=== PATIENT | female | born 1965 | race Caucasian/White ===

== ENCOUNTER → 2017-01-16 | Outpatient (CLI) | payer OTHER ==
[~2017-01-16] MED LIST: AMBI10TA PO; TYLE3 PO; VIVE0.1D TD
[2017-01-16 07:00] LABS: AUTOMATED NEUTROPHIL # 3.5 TH/MM3 (1.8-7.7); BASOPHIL % 0.5 % (0.0-2.0); EOSINOPHIL # 0.1 TH/MM3 (0-0.4); EOSINOPHIL % 2.1 % (0.0-4.0); HEMATOCRIT 40.7 % (35.0-46.0); HEMO FLAGS DIFF FINAL; LYMPH % 33.6 % (9.0-44.0); MEAN CELL VOLUME 84.7 FL (80.0-100.0); MEAN CORPUSCULAR HEMOGLOBIN 28.7 PG (27.0-34.0); MEAN CORPUSCULAR HGB CONC 33.9 % (32.0-36.0); MONO % 5.1 % (0.0-8.0); NEUT % 58.7 % (16.0-70.0); PLATELET COUNT 281 TH/MM3 (150-450); RED BLOOD COUNT 4.81 MIL/MM3 (4.00-5.30); RED CELL DISTRIBUTION WIDTH 13.4 % (11.6-17.2)
[2017-01-16 08:01] LABS: ALKALINE PHOSPHATASE 84 U/L (45-117); TOTAL BILIRUBIN ADULT 0.1 MG/DL (0.2-1.0)
[2017-01-16 08:43] LABS: ALT (GPT) 23 U/L (10-53); ANION GAP 8 MEQ/L (5-15); AST (GOT) 23 U/L (15-37); BICARBONATE 29.5 MEQ/L (21.0-32.0); BLOOD UREA NITROGEN 16 MG/DL (7-18); CHLORIDE 104 MEQ/L (98-107); GLOMERULAR FILTRATION RATE 85 ML/MIN (>89); GLUCOSE,FASTING 76 MG/DL (74-99); POTASSIUM 3.9 MEQ/L (3.5-5.1); SODIUM (NA) 141 MEQ/L (136-145)
== END ==
LOC: CLAB 06:33
PROVIDERS: ATTEND Nurse Practitioner
DX: R94.4 Abnormal results of kidney function studies (principal)
CPT/HCPCS: 36415; 80053; 85025

== ENCOUNTER → 2017-02-05 | Day surgery (SDC) | payer OTHER ==
[~2017-02-05] MED LIST changes: +LACTATED RINGER'S 1,000 ML BAG IV ONE; +PROPOFOL 500 MG/50 ML BTL IV ONE
--- NOTE | 2017-02-05 15:00 | GIPROC ---
[facility] [address] [facility] [place], [address] COLONOSCOPY PROCEDURE REPORT EXAM DATE: 02/05/2017 PATIENT NAME: Stevie Perry MR #: [id number] BIRTHDATE: 1965 ENDOSCOPIST: Padma Hammond MD ORDER #: [id number] MANAGER FIELD SERVICES: Kesha Yeager RN STATUS: outpatient INDICATIONS: The patient is a 51 yr old female here for a colonoscopy due to high risk patient with previously diagnosed UC proctitis PROCEDURE PERFORMED: Colonoscopy with biopsy MEDICATIONS: None and Per Anesthesia. PREP QUALITY: The [place] Bowel Prep Score was Right colon 2, Mid colon 3, and Left colon 3. Total = 8. PREP TYPE:SuPrep ESTIMATED BLOOD LOSS: None CONSENT: The patient understands the risks and benefits of the procedure and understands that these risks include, but are not limited to: sedation, allergic reaction, infection, perforation and/or bleeding. Alternative means of evaluation and treatment include, among others: physical exam, x-rays, and/or surgical intervention. The patient elects to proceed with this endoscopic procedure. medical equipment was checked for proper function. Hand hygiene and appropriate measures for infection prevention was taken. After the risks, benefits and alternatives of the procedure were thoroughly explained, Informed consent was verified, confirmed and timeout was successfully executed by the treatment team. A digital exam revealed external hemorrhoids The EC-3890Li ([id number]) and EC-[id number] ([id number]) endoscope was introduced through the anus and advanced to the cecum, which was identified by both the appendix and ileocecal valve. The instrument was then slowly withdrawn as the colon was fully examined. COLON FINDINGS: A circumferential diffuse patch of colitis was found in the rectum. The mucosa was erythematous and had granularity. This is consistent with ulcerative colitis disease. Multiple biopsies were performed using cold forceps. Retroflexed views revealed internal hemorrhoids and Retroflexed views revealed medium internal hemorrhoids The scope was then completely withdrawn from the patient and the procedure terminated. PROCEDURE WITHDRAWAL TIME:7minutes ADVERSE EVENTS: There were no complications. IMPRESSIONS: 1. Circumferential diffuse colitis was found in the rectum; The mucosa was erythematous and had granularity; This is consistent with ulcerative colitis.; multiple biopsies were performed using cold forceps 2. Retroflexed views revealed internal hemorrhoids 3. Retroflexed views revealed medium internal hemorrhoids 4. Revealed external hemorrhoids RECOMMENDATIONS: 1. Await biopsy results. Biopsy results will not be ready for 7-10 days. If you don't hear from us in two weeks, call our office for results. 2. Yearly hemoccult 3. Avoid NSAIDS and Aspirin 4. Follow-up: GI Clinic 2 week(s) RECALL: Return 1 year Colonoscopy, pending biopsy results Padma Hammond MD eSigned: Padma Hammond MD 02/05/2017 3:00 PM cc: Mendoza Carrasquillo [facility] Harrell and Radha Man M.D.
== END | disposition home or self-care (01) ==
LOC: ESDC 11:38
PROVIDERS: ATTEND Internal Medicine Gastroenterology
DX: K51.90 Ulcerative colitis, unspecified, without complications (principal); K64.8 Other hemorrhoids; K64.4 Residual hemorrhoidal skin tags
CPT/HCPCS: 00810; 45380; 88305; J7120

== ENCOUNTER → 2017-03-01 | Outpatient (CLI) | payer OTHER ==
[~2017-03-01] MED LIST changes: -LACTATED RINGER'S 1,000 ML BAG IV ONE; -PROPOFOL 500 MG/50 ML BTL IV ONE
[2017-03-03 15:51] LABS: ALMOND LESS THAN 0.10 kU/L (()); ALMOND CLASS 0 (()); CASHEW CLASS 0 (()); CODFISH CLASS 0 (()); COWS MILK CLASS 0 (()); COWS MILK IGE LESS THAN 0.10 kU/L (()); EGG WHITE LESS THAN 0.10 kU/L (()); EGG WHITE CLASS 0 (()); HAZELNUT LESS THAN 0.10 kU/L (()); HAZELNUT CLASS 0 (()); PEANUT LESS THAN 0.10 kU/L (()); PEANUT CLASS 0 (()); SALMON LESS THAN 0.10 kU/L (()); SALMON CLASS 0 (()); SCALLOP LESS THAN 0.10 kU/L (()); SCALLOP CLASS 0 (()); SESAME SEED LESS THAN 0.10 kU/L (()); SESAME SEED CLASS 0 (()); SHRIMP LESS THAN 0.10 kU/L (()); SHRIMP CLASS 0 (()); SOYBEAN LESS THAN 0.10 kU/L (()); SOYBEAN CLASS 0 (()); TUNA LESS THAN 0.10 kU/L (()); TUNA CLASS 0 (()); WALNUT LESS THAN 0.10 kU/L (()); WALNUT CLASS 0 (()); WHEAT LESS THAN 0.10 kU/L (()); WHEAT CLASS 0 (())
== END ==
LOC: CLAB 07:16
PROVIDERS: ATTEND Internal Medicine
DX: Z91.018 Allergy to other foods (principal)
CPT/HCPCS: 36415; 86003

== ENCOUNTER → 2017-06-25 | Outpatient (CLI) | payer OTHER ==
[2017-06-25 07:40] LABS: HEMATOCRIT 41.2 % (35.0-46.0); MEAN CELL VOLUME 85.6 FL (80.0-100.0); MEAN CORPUSCULAR HEMOGLOBIN 28.4 PG (27.0-34.0); MEAN CORPUSCULAR HGB CONC 33.2 % (32.0-36.0); PLATELET COUNT 273 TH/MM3 (150-450); RED BLOOD COUNT 4.81 MIL/MM3 (4.00-5.30); RED CELL DISTRIBUTION WIDTH 13.2 % (11.6-17.2); REVIEW FLAG FINAL; WHITE BLOOD COUNT 4.3 TH/MM3 (4.0-11.0)
[2017-06-25 08:09] LABS: ANION GAP 5 MEQ/L (5-15); AST (GOT) 11 U/L (15-37); BICARBONATE 29.6 MEQ/L (21.0-32.0); BLOOD UREA NITROGEN 16 MG/DL (7-18); CHLORIDE 101 MEQ/L (98-107); GLOMERULAR FILTRATION RATE 85 ML/MIN (>89); GLUCOSE,FASTING 83 MG/DL (74-99); POTASSIUM 3.9 MEQ/L (3.5-5.1); SODIUM (NA) 136 MEQ/L (136-145)
[2017-06-25 08:11] LABS: ALT (GPT) 21 U/L (10-53); WESTERGREN SEDIMENTATION RATE 10 mm/hr (0-20)
[2017-06-25 08:14] LABS: ALKALINE PHOSPHATASE 83 U/L (45-117); TOTAL BILIRUBIN ADULT 0.5 MG/DL (0.2-1.0)
== END ==
LOC: CLAB 06:59
PROVIDERS: ATTEND Internal Medicine
DX: K51.90 Ulcerative colitis, unspecified, without complications (principal)
CPT/HCPCS: 36415; 80053; 82306; 85027; 85652

== ENCOUNTER 2017-09-19 03:52 | Emergency (ER) | payer OTHER ==
[~2017-09-19] VITALS: Ht 162.6 cm; Wt 58.0 kg
[2017-09-19 03:54] VITALS: BP 123/80; PULSE 73; RESP 16; TEMP 97.5; O2SAT 100
[2017-09-19] MEDS ORDERED: MESA1TAB2 PO (04:02)
[2017-09-19] MEDS ORDERED: AMBI10TA PO (04:02)
[2017-09-19] MEDS ORDERED: ESTR1TAB PO (04:02)
[2017-09-19] MEDS ORDERED: SODIUM CHLOR 0.9% 1000 ML INJ 1,000 ML IV SCH (04:28)
[2017-09-19] MEDS ORDERED: SODIUM CHLORIDE 0.9% FLUSH 10 ML FLUSH IV FLUSH PRN (04:30)
--- NOTE | 2017-09-19 04:37 | PD ---
HPI Chief Complaint: Abdominal Pain Time Seen by Provider: 04:28 Travel History International Travel<30 days: No Contact w/Intl Traveler<30days: No Traveled to known affect area: No History of Present Illness HPI 52-year-old female presents to the emergency department by private transportation the care of her spouse for evaluation of lower abdominal cramping and rectal bleeding. Patient states she has a diagnosis of ulcerative colitis and has a colonoscopy as recently as January 2017. Patient states that over the past 2 weeks she has had intermittent blood per rectum but this evening she had pain as well as increased quantity of red blood per rectum. Patient had episode of vomiting. Patient's had chills without fever. Patient rates her pain 4-5/10 in intensity. Patient was last seen by her field artillery cannoneer [address] Parra. Patient's had no cough congestion chest pain length pain dysuria frequency urgency or hematuria. 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) Cardiovascular Problems: No High Cholesterol: Yes (BORDERLINE HIGH) Cerebrovascular Accident: No Diabetes: No Diminished Hearing: No Endocrine: No Gastrointestinal Disorders: Yes (ULCERATIVE COLITIS) GERD: No Genitourinary: No Headaches: No Hepatitis: No Hiatal Hernia: No Immune Disorder: No Insomnia: Yes Musculoskeletal: No Neurologic: Yes Psychiatric: No Reproductive: No Respiratory: No Migraines: No Thyroid Disease: No Ulcer: No Tetanus Vaccination: Unknown Influenza Vaccination: Yes ?: Not Past Surgical History Abdominal Surgery: No Cardiac Surgery: No Ear Surgery: No Endocrine Surgery: No Eye Surgery: No Genitourinary Surgery: No Gynecologic Surgery: No Hysterectomy: Yes Oral Surgery: Yes (TONSILLECTOMY, NASAL RECONSTRUCTION) Pacemaker: No Thoracic Surgery: No Tonsillectomy: Yes Other Surgery: Yes (NASAL FOR DEVIATED SEPTUM) Social History Alcohol Use: Yes (RARELY) Tobacco Use: No Substance Use: No Allergies-Medications (Allergen,Severity, Reaction): Coded Allergies: Sulfa (Sulfonamide Antibiotics) (Unverified Allergy, Severe, VOMITING, ) ciprofloxacin (Verified Allergy, Severe, 09/19/17) vomiting sulfamethoxazole (Unverified Allergy, Severe, N/V, 09/19/17) trimethoprim (Unverified Allergy, Severe, N/V, 09/19/17) Reported Meds & Prescriptions Reported Meds & Active Scripts Active Reported Mesalamine DR (Mesalamine) 800 Mg Tab 800 Mg PO TID Estradiol 1 Mg Tab 1 Mg PO DAILY Ambien (Zolpidem Tartrate) 10 Mg Tab 10 Mg PO HS PRN Review of Systems Except as stated in HPI: all other systems reviewed are Neg General / Constitutional: Positive: Chills, No: Fever HENT: No: Congestion Cardiovascular: No: Chest Pain or Discomfort Respiratory: No: Shortness of Breath Gastrointestinal: Positive: Nausea, Vomiting, Abdominal Pain, Hematochezia, No : Diarrhea Genitourinary: No: Pelvic Pain, Flank Pain Musculoskeletal: No: Myalgias, Arthralgias Skin: No Rash Neurologic: No: Weakness, Dizziness Psychiatric: No: Anxiety Hematologic/Lymphatic: No: Lymph Node Enlargement Physical Exam Narrative GENERAL: Well-developed well-nourished female in no acute distress no respiratory distress SKIN: Warm and dry. HEAD: Normocephalic. EYES: No scleral icterus. No injection or drainage. NECK: Supple, trachea midline. No JVD or lymphadenopathy. CARDIOVASCULAR: Regular rate and rhythm without murmurs, gallops, or rubs. RESPIRATORY: Breath sounds equal bilaterally. No accessory muscle use. GASTROINTESTINAL: Abdomen soft, bilateral lower quadrant tenderness to palpation left greater than right no guarding or rebound, nondistended. MUSCULOSKELETAL: No cyanosis, or edema. BACK: Nontender without obvious deformity. No CVA tenderness. Data Data Last Documented VS Vital Signs Date Time Temp Pulse Resp B/P (MAP) Pulse Ox O2 Delivery O2 Flow Rate FiO2 09/19/17 04:41 70 16 119/77 (91) 70 16 123/75 (91) 77 16 112/75 (87) 09/19/17 03:54 97.5 100 Room Air Orders Orders Complete Blood Count With Diff (09/19/17 04:28) Comprehensive Metabolic Panel (09/19/17 04:28) Lipase (09/19/17 04:28) Lactic Acid (09/19/17 04:28) Prothrombin Time / Inr (Pt) (09/19/17 04:28) Act Partial Throm Time (Ptt) (09/19/17 04:28) Urinalysis - C+S If Indicated (09/19/17 04:28) Ct Abd/Pel W Iv Contrast(Rout) (09/19/17 04:28) Iv Access Insert/Monitor (09/19/17 04:28) Ecg Monitoring (09/19/17 04:28) Oximetry (09/19/17 04:28) Sodium Chlor 0.9% 1000 Ml Inj (Ns 1000 M (09/19/17 04:28) Sodium Chloride 0.9% Flush (Ns Flush) (09/19/17 04:30) Orthostatic Vital Signs (09/19/17 04:28) Type And Screen (09/19/17 04:37) Iohexol 350 Inj (Omnipaque 350 Inj) (09/19/17 05:43) Ed Discharge Order (09/19/17 06:27) Labs Laboratory Tests Test 09/19/17 04:54 09/19/17 04:55 Lactic Acid Level 1.1 mmol/L White Blood Count 10.5 TH/MM3 Red Blood Count 5.01 MIL/MM3 Hemoglobin 15.0 GM/DL Hematocrit 42.9 % Mean Corpuscular Volume 85.7 FL Mean Corpuscular Hemoglobin 30.0 PG Mean Corpuscular Hemoglobin Concent 35.0 % Red Cell Distribution Width 13.0 % Platelet Count 282 TH/MM3 Mean Platelet Volume 8.6 FL Neutrophils (%) (Auto) 76.6 % Lymphocytes (%) (Auto) 16.4 % Monocytes (%) (Auto) 5.0 % Eosinophils (%) (Auto) 1.8 % Basophils (%) (Auto) 0.2 % Neutrophils # (Auto) 8.1 TH/MM3 Lymphocytes # (Auto) 1.7 TH/MM3 Monocytes # (Auto) 0.5 TH/MM3 Eosinophils # (Auto) 0.2 TH/MM3 Basophils # (Auto) 0.0 TH/MM3 CBC Comment DIFF FINAL Differential Comment Prothrombin Time 10.2 SEC Prothromb Time International Ratio 0.9 RATIO Activated Partial Thromboplast Time 21.0 SEC Urine Color YELLOW Urine Turbidity HAZY Urine pH 6.0 Urine Specific [place] 1.016 Urine Protein NEG mg/dL Urine Glucose (UA) NEG mg/dL Urine Ketones NEG mg/dL Urine Occult Blood SMALL Urine Nitrite NEG Urine Bilirubin NEG Urine Urobilinogen LESS THAN 2.0 MG/DL Urine Leukocyte Esterase MOD Urine RBC 4 /hpf Urine WBC 3 /hpf Urine Squamous Epithelial Cells 9 /hpf Urine Bacteria FEW /hpf Urine Hyaline Casts 1 /lpf Urine Mucus MOD /lpf Microscopic Urinalysis Comment CULT NOT INDICATED Blood Urea Nitrogen 21 MG/DL Creatinine 0.79 MG/DL Random Glucose 87 MG/DL Total Protein 7.4 GM/DL Albumin 3.6 GM/DL Calcium Level 9.0 MG/DL Alkaline Phosphatase 90 U/L Aspartate Amino Transf (AST/SGOT) 24 U/L Alanine Aminotransferase (ALT/SGPT) 30 U/L Total Bilirubin 0.3 MG/DL Sodium Level 140 MEQ/L Potassium Level 4.1 MEQ/L Chloride Level 103 MEQ/L Carbon Dioxide Level 29.8 MEQ/L Anion Gap 7 MEQ/L Estimat Glomerular Filtration Rate 77 ML/MIN Lipase 175 U/L [facility] Medical Decision Making Medical Screen Exam Complete: Yes Emergency Medical Condition: Yes Medical Record Reviewed: Yes Interpretation(s) Last Impressions Abdomen/Pelvis CT 09/19/17 0428 Signed Impressions: Service Date/Time: Sunday, September 19, 2017 05:41 - CONCLUSION: Normal CT of the abdomen and pelvis. Luis Miguel Ramos MD CBC & BMP Diagram 09/19/17 04:55 Total Protein 7.4, Albumin 3.6, Calcium Level 9.0, Alkaline Phosphatase 90, Aspartate Amino Transf (AST/SGOT) 24, Alanine Aminotransferase (ALT/SGPT) 30, Total Bilirubin 0.3 Vital Signs Date Time Temp Pulse Resp B/P (MAP) Pulse Ox O2 Delivery O2 Flow Rate FiO2 09/19/17 04:41 70 16 119/77 (91) 70 16 123/75 (91) 77 16 112/75 (87) 09/19/17 03:54 97.5 73 16 123/80 (94) 100 Room Air Differential Diagnosis Abdominal pain, flare of inflammatory bowel disease, diverticulitis, anal fissure, hemorrhoidal bleeding, GI bleed Narrative Course IV access obtained specimens collected and sent for resulting orthostatic measurements obtained patient does not want any pain medicine or anti-medic; CT abdomen and pelvis ordered Orthostatic measurements with insignificant variance in blood pressure and heart rate from supine sitting to standing Laboratories found to be in normal range including normal lactic acid CT abdomen and pelvis IV contrast is read as normal per reading radiologist Rectal exam shows no fissure no tear no prolapsed hemorrhoids and normal sphincter tone with no stool in the rectal vault and no blood on the exam glove ; occult testing is negative Patient is currently experiencing no discomfort or pain and is desirous of being discharged to home. Patient is safe for discharge at this time and should follow-up with her field artillery cannoneer on Sunday. [facility] Internal Pos. & Neg. Controls: Passed Fecal Specimen Occult Blood: Negative Diagnosis Primary Impression: Abdominal pain Qualified Codes: R10.30 - Lower abdominal pain, unspecified Additional Impressions: History of ulcerative colitis Rectal bleed Referrals: Marjorie Parra MD 1 week Patient Instructions: General Instructions Additional Instructions: Increase fluid hydration Follow clear liquid diet for next 12-24 hours advance as tolerated to bland/ Braden diet then regular diet avoiding fried and fatty foods Take Bentyl as prescribed as needed for intestinal spasm Takes Zofran as prescribed as needed for nausea and/or vomiting Take acetaminophen/Tylenol as needed for fever 100.4F or greater or for minor pain Return to the emergency department for fever pain vomiting or any concerns Follow-up with your field artillery cannoneer call office to schedule follow-up appointment Continue current medications as presently prescribed Med/Other Pt SpecificInfo: Prescription(s) given (Bentyl) Scripts Ondansetron Odt (Zofran Odt) 4 Mg Tab 4 MG SL Q6HR Y for Nausea/Vomiting, #10 TAB 0 Refills Prov: Lisset Angel MD 09/19/17 Dicyclomine (Bentyl) 10 Mg Cap 10 MG PO Q6HR for Bowel Management, #12 CAP 0 Refills Prov: Lisset Angel MD 09/19/17 Disposition: DISCHARGE HOME Condition: Stable Lisset Angel MD Sep 19, 2017 04:37
[2017-09-19 04:41] VITALS: BP_SYST 112; BP_SYST 119; BP_SYST 123; BP_DIAS 75; BP_DIAS 77; RESP 16
[2017-09-19 05:02] LABS: AUTOMATED NEUTROPHIL # 8.1 TH/MM3 (1.8-7.7); BASOPHIL % 0.2 % (0.0-2.0); EOSINOPHIL # 0.2 TH/MM3 (0-0.4); EOSINOPHIL % 1.8 % (0.0-4.0); HEMATOCRIT 42.9 % (35.0-46.0); HEMO FLAGS DIFF FINAL; LYMPH % 16.4 % (9.0-44.0); LYMPHOCYTE # 1.7 TH/MM3 (1.0-4.8); MEAN CELL VOLUME 85.7 FL (80.0-100.0); NEUT % 76.6 % (16.0-70.0); PLATELET COUNT 282 TH/MM3 (150-450); RED BLOOD COUNT 5.01 MIL/MM3 (4.00-5.30); WHITE BLOOD COUNT 10.5 TH/MM3 (4.0-11.0)
[2017-09-19 05:09] LABS: BACTERIA, URINE FEW /hpf; BLOOD, URINE SMALL (NEG); GLUCOSE,URINE NEG (NEG); HYALINE CAST, URINE 1 /lpf (RARE); KETONE, URINE NEG (NEG); MUCUS URINE MOD /lpf (OCC); NITRITE,URINE NEG (NEG); SQUAMOUS EPITHELIAL CELL URINE 9 /hpf (0-5); URINE COLOR YELLOW (YELLW/STRAW)
[2017-09-19 05:11] LABS: COMMENT (UR) CULT NOT INDICATED; CULTURE IF INDICATED CULT NOT INDICATED
[2017-09-19 05:16] LABS: INTERNATIONAL NORMALIZED RATIO 0.9 RATIO; PROTHROMBIN TIME - PATIENT 10.2 SEC (9.8-11.6)
[2017-09-19 05:22] LABS: ALKALINE PHOSPHATASE 90 U/L (45-117); TOTAL BILIRUBIN ADULT 0.3 MG/DL (0.2-1.0)
[2017-09-19 05:26] LABS: ALT (GPT) 30 U/L (10-53); ANION GAP 7 MEQ/L (5-15); AST (GOT) 24 U/L (15-37); BICARBONATE 29.8 MEQ/L (21.0-32.0); BLOOD UREA NITROGEN 21 MG/DL (7-18); CHLORIDE 103 MEQ/L (98-107); GLOMERULAR FILTRATION RATE 77 ML/MIN (>89); POTASSIUM 4.1 MEQ/L (3.5-5.1); SODIUM (NA) 140 MEQ/L (136-145)
[2017-09-19] MEDS ORDERED: IOHEXOL 350 MG/ML 10 ML VIAL (for RAD DIAG) IVCONTRAST ONE (05:43)
--- NOTE | 2017-09-19 06:10 | RADRPT ---
EXAM DATE/TIME: 09/19/2017 05:41 [place] COMPARISON: No previous studies available for comparison. INDICATIONS : Diffuse abdominal pain with vomiting and rectal bleeding. IV CONTRAST: 80 cc Omnipaque 350 (iohexol) IV ORAL CONTRAST: No oral contrast ingested. RADIATION DOSE: 6.44 CTDIvol (mGy) MEDICAL HISTORY : Ulcerative colitis. SURGICAL HISTORY : Hysterectomy. ENCOUNTER: Initial ACUITY: 1 day PAIN SCALE: 5/10 LOCATION: All quadrants. TECHNIQUE: Volumetric scanning of the abdomen and pelvis was performed. Using automated exposure control and ad justment of the mA and/or kV according to patient size, radiation dose was kept as low as reasonably achievable to obtain optimal diagnostic quality images. DICOM format image data is available electro nically for review and comparison. FINDINGS: LOWER LUNGS: The visualized lower lungs are clear. LIVER: Homogeneous density without lesion. There is no dilation of the biliary tree. No calcified gallston es. SPLEEN: Normal size without lesion. PANCREAS: Within normal limits. KIDNEYS: Normal in size and shape. There is no mass, stone or hydronephrosis. ADRENAL GLANDS: Within normal limits. VASCULAR: There is no aortic aneurysm. BOWEL/MESENTERY: The stomach, small bowel, and colon demonstrate no acute abnormality. There is no free intraperitone al air or fluid. ABDOMINAL WALL: Within normal limits. RETROPERITONEUM: There is no lymphadenopathy. BLADDER: No wall thickening or mass. REPRODUCTIVE: Within normal limits. INGUINAL: There is no lymphadenopathy or hernia. MUSCULOSKELETAL: Within normal limits for patient age. CONCLUSION: Normal CT of the abdomen and pelvis. Luis Miguel Ramos MD on September 19, 2017 at 6:08 Board Certified Radiologist. This report was verified electronically.
[2017-09-19] MEDS ORDERED: DICY10 PO (06:29)
[2017-09-19] MEDS ORDERED: ZOFR4TAB3 SL (06:29)
== END 2017-09-19 06:36 | disposition home or self-care (01) ==
LOC: NEPC 03:52
DX: R10.30 Lower abdominal pain, unspecified (principal); K51.911 Ulcerative colitis, unspecified with rectal bleeding; G47.00 Insomnia, unspecified
CPT/HCPCS: 74177; 80053; 81001; 83605; 83690; 85025; 85610; 85730; 86850; 86900; 86901; 96360; 99285; J7030; Q9967